=== PATIENT | male | born 1985 | race Hispanic/Latino ===

== ENCOUNTER 2021-03-31 06:20 | Emergency (ER) | payer OTHER | END 2021-03-31 06:24 | disposition home or self-care (01) | LOC: CSHERS 06:20 | DX: K64.4 Residual hemorrhoidal skin tags (principal); R03.0 Elevated blood-pressure reading, without diagnosis of hypertension | CPT/HCPCS: 99283 ==

== ENCOUNTER 2021-09-05 14:55 | Emergency (ER) | payer OTHER ==
[2021-09-05 16:00] LABS: #Eosinphils 0.1 10x3/uL (0.0-0.5); #Monocytes 0.4 10x3/uL (0.0-1.1); #Neutrophils 3.7 10x3/uL (1.5-8.4); %Basophils 0.5 % (0.0-2.0); %Eosinophils 1.9 % (0.0-6.0); %Lymphocytes 31.9 % (18.0-47.0); %Monocytes 5.6 % (0.0-10.0); %Neutrophils 59.8 % (40.0-75.0); Hemoglobin 11.6 g/dL (13.5-17.5); Mean Corpuscular Hemoglobin 26.4 pg (27.0-33.0); Mean Platelet Volume 9.8 fl (7.4-10.4); Platelet Count 252 10x3/uL (150-450); RBC Distribution Width 18.3 % (11.5-14.5); White Blood Cell (WBC) Count 6.2 10x3/uL (3.5-10.5)
[2021-09-05 16:11] LABS: ALT (SGPT) 58 U/L (8-55); AST (SGOT) 25 U/L (5-34); Alkaline Phosphatase 150 U/L (40-110); Anion Gap 14 mmol/L (10-20); BUN (Urea Nitrogen) 12 mg/dL (8.9-20.6); Bilirubin, Total 0.5 mg/dL (0.2-1.2); Calc. Creatinine Clearance 0 mL/min (70-130); Calcium 9.7 mg/dL (7.8-10.44); Carbon Dioxide 23 mmol/L (22-29); Chloride 107 mmol/L (98-107); Globulin 2.8 g/dL (2.4-3.5); Glucose 125 mg/dL (70-105); Potassium 3.7 mmol/L (3.5-5.1); Protein, Total 6.8 g/dL (6.0-8.3)
[2021-09-05 16:14] LABS: Sodium 140 mmol/L (136-145)
[2021-09-05 18:07] LABS: SARS-CoV-2 NAA Rapid Test Not Detected (NotDetected)
== END 2021-09-05 21:22 | disposition short-term general hospital (02) ==
LOC: CSHERS 14:55
DX: K62.5 Hemorrhage of anus and rectum (principal); K64.4 Residual hemorrhoidal skin tags; Z20.822 Contact with and (suspected) exposure to COVID-19; Z89.611 Acquired absence of right leg above knee; Z79.899 Other long term (current) drug therapy
CPT/HCPCS: 80053; 85025; 99284; U0002